=== PATIENT | male | born 1965 | race Caucasian/White ===

== ENCOUNTER → 2017-11-09 | Outpatient (CLI) | payer BC | LOC: COL.RAD 09:36 | DX: M62.89 Other specified disorders of muscle (principal); R22.1 Localized swelling, mass and lump, neck ==

== ENCOUNTER → 2018-01-25 | Outpatient (CLI) | payer BC | LOC: ZCOL.LAB 16:09 | DX: L02.11 Cutaneous abscess of neck (principal) ==

== ENCOUNTER → 2019-01-16 | Outpatient (CLI) | payer BC | LOC: COL.RAD 14:28 | DX: T14.8XXA Other injury of unspecified body region, initial encounter (principal) | CPT/HCPCS: Q9967 ==